=== PATIENT | male | born 1970 | race Caucasian/White ===

== ENCOUNTER 2017-05-11 12:15 | Emergency (ER) | payer SELFPAY ==
[~2017-05-11] VITALS: Ht 180.3 cm; Wt 85.0 kg
[2017-05-11 12:20] VITALS: BP 145/93; PULSE 93; RESP 16; TEMP 98.2; O2SAT 99
== END 2017-05-11 13:45 | disposition left against medical advice (07) ==
LOC: PHED 12:15
DX: R22.0 Localized swelling, mass and lump, head (principal)
CPT/HCPCS: 99281